=== PATIENT | male | born 1960 | race Caucasian/White ===

== ENCOUNTER 2017-01-29 11:29 | Inpatient (IN) | payer BC ==
[~2017-01-29] VITALS: Ht 170.2 cm; Wt 89.8 kg
--- NOTE | ~2017-01-29 | TEE ---
[facility] [place] [address] TRANSESOPHAGEAL ECHOCARDIOGRAM Name: DANIEL HARRIS Room #: 211-P ADM IN M.R.#: [id number] Admission: 01/29/17 Attend Phys: Naa Lazo Discharge: Date of : 56 Date of Service: 01/30/17 0915 Report #: [id number] THIS REPORT FOR: //name// APPROVED REPORT Study performed: 01/30/2017 07:56:13 EXAM: Comprehensive 2D, Doppler, and color-flow Echocardiogram Patient Location: [facility] Room #: 211 Status: routine Other Information Study Quality: Good Indications Atrial Fibrillation Cardioversion Procedure After obtaining informed consent, patient underwent transesophageal echo in the [facility]. Type of Sedation : Conscious Sedation Sedation was administered by Brooke Daniel RN. Sedation was achieved intravenously with: Versed (5) Fentanyl (100) Transesophageal probe was inserted and advanced into esophagus without difficulty by Bassam Valverde MD. The KULDEEP was performed without complications. Throughout the procedure, the blood pressure, pulse oximetry, cardiac rhythm, and rate were monitored. The patient tolerated the procedure without adverse effects. Recovery from conscious sedation was uneventful and vital signs were stable. Left Ventricle The left ventricle is normal size. There is normal LV segmental wall motion. Left ventricular systolic function is lower limits of normal LVEF is 50%. Right Ventricle The right ventricle is normal size. The right ventricular systolic function is normal. [facility] [address] [place] [address] TRANSESOPHAGEAL ECHOCARDIOGRAM Name: DANIEL HARRIS Marky Room #: 211-P ADM IN M.R.#: [id number] Admission: 01/29/17 Attend Phys: Naa Lazo Discharge: Date of : 56 Date of Service: 01/30/17 0915 Report #: [id number] Atria Left atrium is dilated. No thrombus is visualized in the left atrium or appendage. Injection of bubbles documented no interatrial shunt. Right atrium is dilated. Aortic Valve The aortic valve is normal in structure. No aortic regurgitation is present. There is no aortic valvular stenosis. Mitral Valve The mitral valve is normal in structure. Mild mitral regurgitation. Tricuspid Valve The tricuspid valve is normal in structure. Trace tricuspid regurgitation. Pulmonic Valve The pulmonary valve is normal in structure. Great Vessels The aortic root is normal in size. The ascending aorta is normal in size. Pericardium There is no pericardial effusion. <Conclusion> Left ventricular systolic function is lower limits of normal There is normal LV segmental wall motion. LVEF 50%. Right and left atria are dilated. No thrombus is visualized in the left atrium or appendage. Injection of bubbles documented no interatrial shunt. The aortic valve is normal in structure. No aortic regurgitation or stenosis The mitral valve is normal in structure. Mild mitral regurgitation. There is no pericardial effusion. <ELECTRONICALLY SIGNED> By: Bassam Valverde MD, FAC 01/30/17914 4 4 Bassam Valverde MD, FAC /INF
--- NOTE | ~2017-01-29 | EKG ---
[address] [address] ELECTROCARDIOGRAM REPORT Name: DANIEL HARRIS Room #: 211-P ADM IN M.R.#: [id number] Admission: 01/29/17 Attend Phys: Anish Durán MD Discharge: Date of : 56 Report #: [id number] THIS REPORT FOR: //name// [facility] ED Test Date: 2017-01-29 Test Time: 11:34:36 Pat Name: DANIEL HARRIS Department: Room: 211 Gender: M Doughnut Icer: LIOR : 1960 Requested By: Tessie Velázquez Order Number: [id number] MD: Bassam Valverde Measurements Intervals [place] Rate: 145 P: SC: QRS: 21 QRSD: 81 T: 34 QT: 295 QTc: 458 Interpretive Statements Atrial fibrillation Borderline repolarization abnormality Compared to ECG 07/20/2006 08:47:54 Sinus rhythm no longer present Electronically Signed On 01-30-2017 8:41:13 CDT by Bassam Valverde [email or web address] <ELECTRONICALLY SIGNED> By: Bassam Valverde MD, [facility] 01/30/17 0841 1134 113 Bassam Valverde MD, FACC /EPI
--- NOTE | ~2017-01-29 | EKG ---
[address] [address] ELECTROCARDIOGRAM REPORT Name: DANIEL HARRIS Room #: 211- ADM IN M.R.#: [id number] Admission: 01/29/17 Attend Phys: Anish Durán MD Discharge: Date of : 56 Report #: [id number] THIS REPORT FOR: //name// [facility] Test Date: 2017-01-30 Test Time: 08:44:39 Pat Name: DANIEL HARRIS Department: Room: 211 P Gender: M Data Coordinator: MARBELLA : 1960 Requested By: Bassam Valverde Order Number: [id number] MD: Bassam Valverde Measurements Intervals [place] Rate: 82 P: 57 AL: 193 QRS: 6 QRSD: 89 T: QT: 447 QTc: 522 Interpretive Statements Sinus rhythm Nonspecific T abnrm, anterolateral leads Prolonged QT interval Compared to ECG 01/29/2017 11:34:36 Prolonged QT interval now present Atrial fibrillation no longer present Electronically Signed On 01-30-2017 8:50:30 CDT by Bassam Valverde [email or web address] <ELECTRONICALLY SIGNED> By: Bassam Valverde MD, [facility] 01/30/17 0850 0844 0844 Bassam Valverde MD, [facility] /EPI
[2017-01-29 11:36] VITALS: BP 147/99
[2017-01-29] MEDS ORDERED: CELEXA20 MG PO (11:39)
[2017-01-29 11:59] LABS: HEMATOCRIT 45.2 % (42.0-52.0); HEMOGLOBIN 15.1 gm/dL (14.0-18.0); MCH 29.3 pg (26.0-34.0); MCHC 33.5 g/dL (28.0-37.0); MCV 87.5 fL (80.0-100.0); PLATELET COUNT 172 thou/uL (150-400); RBC 5.16 mil/uL (4.50-6.00); RDW 14.6 % (10.5-14.5); WBC 12.5 thou/uL (4.0-11.0)
[2017-01-29 12:03] LABS: MANUAL DIFF YES
[2017-01-29 12:08] LABS: ANION GAP 9 mmol/L (7-16); BUN 9 mg/dL (7-18); CALCIUM 9.2 mg/dL (8.5-10.1); CHLORIDE 104 mmol/L (98-107); CO2 26 mmol/L (21-32); GLUCOSE 151 mg/dL (74-106); POTASSIUM 3.6 mmol/L (3.5-5.1); SODIUM 139 mmol/L (136-145)
[2017-01-29 12:09] LABS: APTT 29.5 Seconds (24.5-32.8); INR 1.1
[2017-01-29 12:16] LABS: TROPONIN-I < 0.04 ng/mL (<0.04-0.07)
[2017-01-29 12:20] LABS: ABSOLUTE NEUTROPHILS 10.8 thou/uL (1.4-8.2); PLATELET ESTIMATE NORMAL; TOTAL CELL COUNT 100
[2017-01-29 14:20] VITALS: BP 130/89
[2017-01-29] MEDS ORDERED: MELATIN3 MG PO (15:16)
[2017-01-29 16:43] VITALS: BP 131/92
[2017-01-29 19:40] VITALS: BP 125/93
[2017-01-29 23:13] VITALS: BP 116/93
[2017-01-30 04:02] VITALS: BP 115/88
[2017-01-30 04:07] LABS: ABSOLUTE NEUTROPHILS 8.5 thou/uL (1.4-8.2); BASOPHILS 0.3 % (0.0-2.0); EOSINOPHILS 0.5 % (0.0-3.0); HEMATOCRIT 41.8 % (42.0-52.0); HEMOGLOBIN 13.9 gm/dL (14.0-18.0); LYMPHOCYTES 12.6 % (24.0-44.0); MCHC 33.3 g/dL (28.0-37.0); MCV 87.1 fL (80.0-100.0); MONOCYTES 9.9 % (1.0-8.0); PLATELET COUNT 166 thou/uL (150-400); POLYS 76.7 % (36.0-66.0); RDW 14.6 % (10.5-14.5); WBC 11.1 thou/uL (4.0-11.0)
[2017-01-30 04:08] LABS: MANUAL DIFF NO
[2017-01-30 04:21] LABS: ANION GAP 8 mmol/L (7-16); BUN 11 mg/dL (7-18); CALCIUM 8.5 mg/dL (8.5-10.1); CHLORIDE 105 mmol/L (98-107); CHOLESTEROL 125 mg/dL (<200); CO2 26 mmol/L (21-32); CREATININE 0.9 mg/dL (0.7-1.3); GLUCOSE 120 mg/dL (74-106); HDL CHOLESTEROL 37 mg/dL (>40); LDL CHOLESTEROL 75 mg/dL (<100); MAGNESIUM 1.8 mg/dL (1.8-2.4); POTASSIUM 3.9 mmol/L (3.5-5.1); SODIUM 139 mmol/L (136-145); TC:HDL 3.4 Ratio (Not establshd); TRIGLYCERIDE 65 mg/dL (<150); VLDL 13 mg/dL (<40)
[2017-01-30 04:22] LABS: SERUM ASSESSMENT Clear
[2017-01-30 07:35] VITALS: BP 128/89
[2017-01-30 11:48] VITALS: BP 128/93
[2017-01-30 17:14] VITALS: BP 132/91
[2017-01-30 20:03] VITALS: BP 127/92
[2017-01-30 23:05] VITALS: BP 127/92
[2017-01-31 03:39] VITALS: BP 133/99
[2017-01-31 07:15] VITALS: BP 128/92
[2017-01-31] MEDS ORDERED: MULTAQ 400 MG400 MG PO (10:31)
[2017-01-31] MEDS ORDERED: CARDIZEM CD120 MG PO (10:31)
[2017-01-31] MEDS ORDERED: AZITHROMYCIN 2250 MG PO (10:31)
[2017-01-31] MEDS ORDERED: ROBITUSSIN COU237 M2 PO (10:31)
[2017-01-31] MEDS ORDERED: ELIQUIS5 MG PO (10:31)
[2017-01-31 10:38] VITALS: BP 133/99
== END 2017-01-31 11:40 | disposition home or self-care (01) | DRG 310 ==
LOC: ER 11:29 → EROBS 12:37 → 2N 12:37
PROVIDERS: Emergency Medicine; Internal Medicine
PROC: 5A2204Z Restoration of Cardiac Rhythm, Single (ICD-10-PCS; principal; 2017-01-30)
DX: I48.91 Unspecified atrial fibrillation (principal); J40 Bronchitis, not specified as acute or chronic; F41.9 Anxiety disorder, unspecified; G47.33 Obstructive sleep apnea (adult) (pediatric); K21.9 Gastro-esophageal reflux disease without esophagitis; Z79.01 Long term (current) use of anticoagulants; Z79.899 Other long term (current) drug therapy; Z82.49 Family history of ischemic heart disease and other diseases of the circulatory system
CPT/HCPCS: 10081

== ENCOUNTER → 2017-03-02 | Outpatient (CLI) | payer BC ==
[~2017-03-02] MED LIST: AZITHROMYCIN 2250 MG PO; CARDIZEM CD120 MG PO; CELEXA20 MG PO; COREG6.25 MG PO; ELIQUIS5 MG PO; MELATIN3 MG PO; MULTAQ 400 MG400 MG PO; ROBITUSSIN COU237 M2 PO
== END ==
LOC: NUC 02-23 10:11
DX: I48.91 Unspecified atrial fibrillation (principal)

== ENCOUNTER → 2017-03-07 | Outpatient (CLI) | payer BC ==
[~2017-03-07] VITALS: Ht 170.2 cm; Wt 90.7 kg
--- NOTE | ~2017-03-07 | CATHLAB ---
[facility] [address] [place] [address] INVASIVE PROCEDURE REPORT Name: DANIEL HARRIS Room #: REG ROSAMARIA Wasserman#: [id number] Admission: 03/07/17 Attend Phys: Sam Bolden MD Discharge: Date of : 56 Date of Service: 03/07/17 [facility] Report #: [id number] THIS REPORT FOR: //name// APPROVED REPORT Patient Details Patient Status: Out-Patient Room #: The patient is a 56 year-old male Event Personnel Sam Bolden Central Office Equipment Engineer, Scooter Estrada RN, Josi Olmos Monitor, Polo Driscoll Monitor, Radha Hassan RN Lathe Sander Procedures Performed Left Heart Cath w/or w/o Coronaries [id number] [facility] Indication Atrial fibrillation, Dyspnea, Cardiomyopathy Procedure Narrative The Right Wrist^ was infiltrated with 1% Lidocaine subcutaneous anesthesia. A 6FR TRANSRADIAL GLIDESHEATH W/ NEEDLE #[id number] sheath was inserted into the Right Radial Artery^. Coronary angiography was performed using coronary diagnostic catheters. The right coronary system was accessed and visualized with a JR4 catheter. The left coronary system was accessed and visualized with a JL3.5 catheter. The left ventricle was accessed and visualized with a PIGTAIL catheter. Left ventricular/Aortic Valve gradient assessed via catheter pullback. Left ventriculogram was performed in 30 degree projection. Hemostasis was obtained with manual pressure following sheath removal without any complications. The patient tolerated the procedure well and there were no complications associated with the procedure. There was no hematoma. Intraoperative Conscious Sedation Sedation start time: 8:16 Case end Time: 8:52 Fentanyl 25 mcg Versed 1 mg Fluoro Time: 5.04 minutes Dose: 743 mGy Contrast Type and Amount: Omnipaque 105 ml Coronary Angiography [facility] [address] [place] [address] INVASIVE PROCEDURE REPORT Name: KELLYDANIEL SPRINGER Room #: REG [facility]#: [id number] Admission: 03/07/17 Attend Phys: Sam Bolden MD Discharge: Date of : 56 Date of Service: 03/07/17 1038 Report #: [id number] The patient's coronary anatomy is right dominant. Diagnostic Cath Left Main Large-caliber vessel, with no flow-limiting lesions. LAD Moderate size caliber vessel, with no flow-limiting lesions. There are minimal luminal irregularities in the mid segment. Circumflex Moderate size caliber vessel, with no flow-limiting lesions. Right Coronary Large-caliber vessel, dominant. There were no flow-limiting lesions. There are minimal luminal irregularities in the proximal segment. R PDA Moderate size caliber vessel, extending around to the apex, with no flow-limiting lesions. RPLV Moderate size caliber vessel, with no flow-limiting lesions. Left Ventriculography The left ventricle is mildly dilated in size with decreased contractility. The left ventricular ejection fraction is estimated to be 25-30%. Hemodynamics The aortic pressure is 116/86 mmHg with a mean of 92 mmHg. The left ventricular pressure is 110/13 mmHg with a mean of mmHg. The left ventricular end diastolic pressure is 15 mmHg. Conclusion 1. Severe, nonischemic cardiomyopathy. 2. Minimal luminal irregularities, as noted above. 3. Medical therapy is recommended. Recommendations Aggressive Medical Therapy <ELECTRONICALLY SIGNED> By: Sam Bolden MD 03/07/17 1038 1038 1038 Sam Bolden MD /INF
--- NOTE | ~2017-03-07 | EKG ---
[address] [address] ELECTROCARDIOGRAM REPORT Name: STEVENDANIEL SUZANNE [facility]: [facility] [id number] Admission: 03/07/17 Attend Phys: Sam Bolden MD Discharge: Date of : 56 Report #: [id number] THIS REPORT FOR: //name// [facility] [place] [facility] Test Date: 2017-03-07 Test Time: 07:08:56 Pat Name: DANIEL HARRIS Department: Room: Gender: M Commercial Lines Assistant: STEWART : 1960 Requested By: Sam Bolden Order Number: [id number] MD: Bill Leslie Measurements Intervals [place] Rate: 71 P: NM: QRS: 7 QRSD: 91 T: 87 QT: 377 QTc: 410 Interpretive Statements Atrial fibrillation Borderline abnrm T, anterolateral leads Compared to ECG 01/30/2017 08:44:39 Sinus rhythm no longer present Prolonged QT interval no longer present Electronically Signed On 03-12-2017 21:38:15 CDT by Bill Leslie [email or web address] <ELECTRONICALLY SIGNED> By: Bill Leslie MD 03/12/17 2138 7 Bill Leslie MD /EDD
[2017-03-07 07:00] VITALS: BP 111/78
[2017-03-07 07:36] LABS: HEMATOCRIT 45.5 % (42.0-52.0); HEMOGLOBIN 15.4 gm/dL (14.0-18.0); MCHC 33.8 g/dL (28.0-37.0); MCV 85.8 fL (80.0-100.0); RBC 5.31 mil/uL (4.50-6.00); RDW 14.7 % (10.5-14.5); WBC 6.8 thou/uL (4.0-11.0)
[2017-03-07 07:45] LABS: CREATININE 1.1 mg/dL (0.7-1.3); POTASSIUM 4.2 mmol/L (3.5-5.1)
== END | disposition home or self-care (01) ==
LOC: CATH 06:33
PROVIDERS: Internal Medicine Cardiovascular Disease
DX: I25.10 Atherosclerotic heart disease of native coronary artery without angina pectoris (principal); I48.91 Unspecified atrial fibrillation; I42.9 Cardiomyopathy, unspecified

== ENCOUNTER → 2017-03-08 | Outpatient (CLI) | payer BC ==
--- NOTE | ~2017-03-08 | 2DMMODE ---
[facility] [place] [address] 2 D/M-MODE ECHOCARDIOGRAM Name: DANIEL HARRIS Room #: REG [facility]#: [id number] Admission: 03/08/17 Attend Phys: Bill Leslie Discharge: Date of : 56 Date of Service: 03/08/17 1600 Report #: [id number] THIS REPORT FOR: //name// APPROVED REPORT Study performed: 03/08/2017 15:25:35 EXAM: Limited 2D, Doppler, and color-flow Echocardiogram Patient Location: Out-Patient Status: routine BSA: 2.00 HR: 93 bpm BP: 128/89 mmHg Rhythm: Atrial Fibrillation Other Information Study Quality: Adequate Indications Limited echo for LV function. Nonischemic cardiomyopathy, Afib. 2D Dimensions RVDd: 33.54 mm LVEF(%): 33.35 (>50%) IVSd: 10.24 (7-11mm) LVDd: 49.28 mm PWd: 10.96 (7-11mm) LVDs: 41.46 (25-40mm) Shane's LVEF: 33.35 % Volumes Left Atrial Volume (Systole) Single Plane 4CH: 69.84 mL Single Plane 2CH: 86.58 mL LA ESV Index: 42.00 mL/m2 Tricuspid Valve TR Peak Talib.: 2.50 m/s RAP Estimate: 5.00 mmHg TR Peak Gr.: 25.01 mmHg PA Pressure: 30.00 mmHg Left Ventricle The left ventricle is normal size. There is normal left ventricular wall thickness. Left ventricular systolic function is severely decreased. LVEF is 30%. Right Ventricle [facility] [address] [place] [address] 2 D/M-MODE ECHOCARDIOGRAM Name: KELLYGIANDANIEL SUZANNE Room #: REG CL Lux#: [id number] Admission: 03/08/17 Attend Phys: Bill Leslie Discharge: Date of : 56 Date of Service: 03/08/17 1600 Report #: [id number] The right ventricle is normal size. Right ventricle is hypokinetic. Atria Left atrium is dilated. The right atrium size is normal. Aortic Valve The aortic valve is normal in structure. Trace aortic regurgitation. Mitral Valve The mitral valve is normal in structure. Trace mitral regurgitation. Tricuspid Valve The tricuspid valve is normal in structure. There is mild tricuspid regurgitation. The right atrial pressure is estimated at 5 mmHg. There is borderline mild pulmonary hypertension with an estimated PAP of 30mmHg. Great Vessels IVC is normal in size and collapses >50% with inspiration. Pericardium There is no pericardial effusion. <Conclusion> The left ventricle is normal size. Left ventricular systolic function is severely decreased. The right ventricle is normal size. Left atrium is dilated. Trace aortic regurgitation. Trace mitral regurgitation. There is mild tricuspid regurgitation. The right atrial pressure is estimated at 5 mmHg. There is borderline mild pulmonary hypertension with an estimated PAP of 30mmHg. <ELECTRONICALLY SIGNED> By: Sam Bolden MD 03/08/171599 99 99 Sam Bolden MD /INF
== END ==
LOC: CV 15:15
DX: I42.9 Cardiomyopathy, unspecified (principal); I48.91 Unspecified atrial fibrillation

== ENCOUNTER → 2017-04-10 | Outpatient (CLI) | payer BC ==
--- NOTE | ~2017-04-10 | 2DMMODE ---
[facility] [place] [address] 2 D/M-MODE ECHOCARDIOGRAM Name: DANIEL HARRIS Room #: REG [facility] [id number] Admission: 04/10/17 Attend Phys: Bill Leslie Discharge: Date of : 56 Date of Service: 04/10/17 1550 Report #: [id number] THIS REPORT FOR: //name// APPROVED REPORT Study performed: 04/10/2017 13:58:58 EXAM: Comprehensive 2D, Doppler, and color-flow Echocardiogram Patient Location: Out-Patient Status: routine BSA: 2.02 HR: 92 bpm BP: 119/87 mmHg Other Information Study Quality: Good Indications Cardiomyopathy 2D Dimensions RVDd: 33.80 mm LVEF(%): 40.78 (>50%) IVSd: 16.09 (7-11mm) LVOT Diam: 21.26 (18-24mm) LVDd: 49.95 mm PWd: 16.12 (7-11mm) Ascending Ao: 38.56 (22-36mm) LVDs: 39.97 (25-40mm) Aortic Root: 34.82 mm IVC: 2.50 mm Shane's LVEF: 40.78 % Volumes Left Atrial Volume (Systole) Single Plane 4CH: 70.54 mL Single Plane 2CH: 84.76 mL LA ESV Index: 42.00 mL/m2 Aortic Valve AoV Peak Talib.: 1.50 m/s AO Peak Gr.: 9.00 mmHg LVOT Max P.40 mmHg LVOT Max V: 0.77 m/s LINCOLN Vmax: 1.83 cm2 Mitral Valve IVRT: 92.27 ms Pulmonary Valve [facility] [employer] [address] [place] [address] 2 D/M-MODE ECHOCARDIOGRAM Name: STEVENDANIEL PALACIOS Room #: REG [facility] [id number] Admission: 04/10/17 Attend Phys: Bill Leslie Discharge: Date of : 56 Date of Service: 04/10/17 1550 Report #: [id number] PV Peak Talib.: 1.01 m/s PV Peak Gr.: 4.12 mmHg Tricuspid Valve TR Peak Talib.: 2.72 m/s RAP Estimate: 5.00 mmHg TR Peak Gr.: 29.59 mmHg PA Pressure: 35.00 mmHg Left Ventricle The left ventricle is normal size. Left ventricular systolic function is moderately decreased. LVEF is 35%. This study is not technically sufficient to allow evaluation of the LV diastolic function due to atrial fibrillation. Right Ventricle The right ventricle is normal size. Atria Left atrium is dilated. Right atrium is dilated. Aortic Valve The aortic valve is normal in structure. Trace aortic regurgitation. There is no aortic valvular stenosis. Mitral Valve The mitral valve is normal in structure. Trace mitral regurgitation. No evidence of mitral valve stenosis. Tricuspid Valve The tricuspid valve is normal in structure. There is trace to mild tricuspid regurgitation. The right atrial pressure is estimated at 5 mmHg. There is mild pulmonary hypertension with an estimated PAP of 35 mmHg. Pulmonic Valve The pulmonary valve is normal in structure. There is no pulmonic valvular regurgitation. Great Vessels The aortic root is normal in size. The ascending aorta is normal in size. IVC is normal in size and collapses >50% with inspiration. Pericardium There is no pericardial effusion. <Conclusion> [facility] [address] [place] [address] 2 D/M-MODE ECHOCARDIOGRAM Name: KELLYGIANDANIEL SUZANNE Room #: REG [facility]#: [id number] Admission: 04/10/17 Attend Phys: Bill Leslie Discharge: Date of : 56 Date of Service: 04/10/171549 Report #: [id number] The left ventricle is normal size. Left ventricular systolic function is moderately decreased. The right ventricle is normal size. Left atrium is dilated. Trace aortic regurgitation. Trace mitral regurgitation. There is trace to mild tricuspid regurgitation. The right atrial pressure is estimated at 5 mmHg. There is mild pulmonary hypertension with an estimated PAP of 35 mmHg. <ELECTRONICALLY SIGNED> By: Sam Bolden MD 04/10/171549 49 1550 Sam Bolden MD /INF
== END ==
LOC: CV 07:22
DX: I42.9 Cardiomyopathy, unspecified (principal)

== ENCOUNTER → 2017-04-21 | Outpatient (CLI) | payer BC ==
[~2017-04-21] VITALS: Ht 170.2 cm; Wt 90.7 kg
[~2017-04-21] MED LIST changes: +ALTACE10 MG PO; +ASPIR 8181 M1 PO; +CARVEDILOL12.5 MG PO; +MELATONIN1 MG PO; +PACERONE 200 M200 M1 PO; +VITAMIN D3400 UNIT PO
--- NOTE | ~2017-04-21 | EKG ---
[address] [address] ELECTROCARDIOGRAM REPORT Name: STEVENDANIEL SUZANNE Room #: REG [facility]#: [id number] Admission: 04/21/17 Attend Phys: Bill Leslie MD Discharge: Date of : 56 Report #: [id number] THIS REPORT FOR: //name// [facility] [place] Test Date: 2017-04-21 Test Time: 12:08:01 Pat Name: DANIEL HARRIS Department: Room: Gender: M Assembler Seat: GR : 1960 Requested By: Bill Leslie Order Number: [id number] MD: Bassam Valverde Measurements Intervals [place] Rate: 56 P: 46 NV: 211 QRS: 1 QRSD: 91 T: 32 QT: 493 QTc: 476 Interpretive Statements Sinus rhythm Borderline T abnormalities, anterior leads Borderline prolonged QT interval Compared to ECG 03/07/2017 07:08:56 sinus rhythm is replaced atrial fibrillation Nonspecific change in the ST and T-wave segments Electronically Signed On 04-24-2017 8:06:27 CDT by Bassam Valverde [email or web address] <ELECTRONICALLY SIGNED> By: Bassam Valverde MD, [facility] 04/24/17 0806 1208 1208 Bassam Valverde MD, [facility] /EPI
--- NOTE | ~2017-04-21 | P ---
[facility] [place] [address] PROCEDURE REPORT Name: STEVENDANIEL PALACIOS Room #: REG Ilir Wasserman#: [id number] Admission: 04/21/17 Attend Phys: Bill Leslie MD Discharge: Date of : 56 Report #: [id number] THIS REPORT FOR: //name// CC: Bill Valverde PROCEDURE: Cardioversion. PREOPERATIVE DIAGNOSIS: Atrial fibrillation. POSTOPERATIVE DIAGNOSIS: Atrial fibrillation. The patient is a 56-year-old recently diagnosed with a nonischemic cardiomyopathy and atrial fibrillation. He has been on optimal medical therapy for his cardiomyopathy, also has a LifeVest and is here for cardioversion after being loaded with oral amiodarone. DESCRIPTION OF PROCEDURE: The patient underwent informed consent. The patient was sedated by the anesthesiology service. Once sedated, the patient underwent a successful 200 joule synchronized cardioversion with jainism of sinus rhythm. There were no complications. CONCLUSIONS: Successful DC cardioversion with jainism of sinus rhythm. <ELECTRONICALLY SIGNED> By: Bill Leslie MD 04/24/17 1601 1505 1656 Bill Leslie MD /nt
[2017-04-21 09:59] LABS: HEMATOCRIT 45.8 % (42.0-52.0); HEMOGLOBIN 15.7 gm/dL (14.0-18.0); MCH 29.6 pg (26.0-34.0); MCHC 34.3 g/dL (28.0-37.0); MCV 86.3 fL (80.0-100.0); RBC 5.31 mil/uL (4.50-6.00); RDW 14.8 % (10.5-14.5)
[2017-04-21 10:07] VITALS: BP 121/83
[2017-04-21 10:08] LABS: CALCIUM 8.9 mg/dL (8.5-10.1); CREATININE 1.1 mg/dL (0.7-1.3); POTASSIUM 4.1 mmol/L (3.5-5.1)
[2017-04-21 10:14] LABS: ALBUMIN 3.9 g/dL (3.4-5.0); APTT 29.4 Seconds (24.5-32.8); INR 1.1; PROTIME 10.8 Seconds (9.3-11.4); TOTAL BILIRUBIN 1.4 mg/dL (<0.1-1.0); TOTAL PROTEIN 7.1 g/dL (6.4-8.2)
== END | disposition home or self-care (01) ==
LOC: CATH 09:12
PROVIDERS: Internal Medicine Cardiovascular Disease
DX: I48.91 Unspecified atrial fibrillation (principal); I42.8 Other cardiomyopathies; F41.8 Other specified anxiety disorders; K21.9 Gastro-esophageal reflux disease without esophagitis; Z98.890 Other specified postprocedural states; Z87.891 Personal history of nicotine dependence; Z79.82 Long term (current) use of aspirin; Z79.899 Other long term (current) drug therapy

== ENCOUNTER → 2017-05-05 | Outpatient (CLI) | payer BC ==
[~2017-05-05] VITALS: Ht 170.2 cm; Wt 90.7 kg
[~2017-05-05] MED LIST changes: +AMBIEN 5 MG TABL5 M1 PO; +ZPAK PO
--- NOTE | ~2017-05-05 | P ---
[facility] [place] [address] PROCEDURE REPORT Name: STEVENDANIEL PALACIOS Room #: REG [facility] Thang.#: [id number] Admission: 05/05/17 Attend Phys: Bill Leslie MD Discharge: Date of : 56 Report #: [id number] THIS REPORT FOR: //name// CC: Bill Leslie [facility] DATE OF SERVICE: 05/05/2017 PROCEDURE PERFORMED: Cardioversion. PREOPERATIVE DIAGNOSIS: Typical atrial flutter. POSTOPERATIVE DIAGNOSIS: Typical atrial flutter. HISTORY OF PRESENT ILLNESS: The patient is a 56-year-old with recent diagnosis of nonischemic cardiomyopathy and atrial fibrillation, status post recent cardioversion, but was found to be in aflutter. He is here for repeat cardioversion now that he has been for a total of one month. PROCEDURE: The patient underwent informed consent and was sedated by the anesthesiology service. He then underwent a successful DC cardioversion with 100 joules with druze of sinus rhythm. CONCLUSIONS: Successful cardioversion from a typical atrial flutter to sinus rhythm. By: 1347 1620 Bill Leslie MD /nt
--- NOTE | ~2017-05-05 | EKG ---
[address] [address] ELECTROCARDIOGRAM REPORT Name: BRITTNEERockyDANIEL [facility] [id number] Admission: 05/05/17 Attend Phys: Bill Leslie MD Discharge: Date of : 56 Report #: [id number] THIS REPORT FOR: //name// [facility] Test Date: 2017-05-05 Test Time: 12:56:29 Pat Name: DANIEL HARRIS Department: Room: Gender: Production Analyst: Marilynn BERNAL : 1960 Requested By: Bill Leslie Order Number: [id number] MD: Bill Leslie Measurements Intervals [place] Rate: 78 P: 55 SC: 201 QRS: 2 QRSD: 95 T: 12 QT: 470 QTc: 536 Interpretive Statements Sinus rhythm Prolonged QT interval Compared to ECG 04/21/2017 12:08:01 T-wave abnormality no longer present Electronically Signed On 05-05-2017 21:05:07 CDT by Bill Leslie [email or web address] <ELECTRONICALLY SIGNED> By: Bill Leslie MD 05/05/17 7650 1256 1256 Bill Leslie MD /EPI
[2017-05-05 11:52] VITALS: BP 130/86
== END | disposition home or self-care (01) ==
LOC: CATH 05-04 06:27
DX: I48.3 Typical atrial flutter (principal); Z98.890 Other specified postprocedural states; I48.91 Unspecified atrial fibrillation; K21.9 Gastro-esophageal reflux disease without esophagitis; I42.8 Other cardiomyopathies; Z87.891 Personal history of nicotine dependence
CPT/HCPCS: 62110; 62900

== ENCOUNTER 2017-05-15 16:10 | Inpatient (IN) | payer BC ==
[~2017-05-15] VITALS: Ht 170.2 cm; Wt 105.1 kg
--- NOTE | ~2017-05-15 | H ---
[facility] [place] [address] HISTORY AND PHYSICAL Name: STEVENDANIEL PALACIOS Room #: 208-P ADM IN M.R.#: [id number] Admission: 05/15/17 Attend Phys: Bill Leslie MD Discharge: Date of : 56 Report #: [id number] THIS REPORT FOR: //name// CC: Bill Leslie [facility] DATE OF SERVICE: 05/15/2017 HISTORY OF PRESENT ILLNESS: The patient is a patient of mine who is a 56-year-old with a nonischemic cardiomyopathy. He was first diagnosed with this in the setting of atrial fibrillation with rapid ventricular response. He also has a history of prior pericarditis. To work up his nonischemic cardiomyopathy, he underwent a nuclear stress test on 03/02/2017 which demonstrated an EF of 32% and a fixed apical defect. Based on these findings, he underwent cardiac catheterization on 03/07/2017 demonstrating an EF of 25-30% with luminal irregularities. To try and maintain sinus rhythm, I started the patient on oral amiodarone and the patient underwent a cardioversion in March. He followed up a few weeks later after he noticed that he was having increased shortness of breath and palpitations and was noted to be in typical atrial flutter. As such, I had the patient undergo a repeat cardioversion on 05/05/2017 and this was successful. He reports that approximately 3 days later, he was experiencing worsening shortness of breath and fatigue. The patient reports that he almost went to the Emergency Room yesterday because of ongoing exertional dyspnea as well as PND and orthopnea. He has also been experiencing some chest discomfort, some lightheadedness and near syncopal episodes. He is very stressed out about his cardiomyopathy and the fact that his brother had a cardiomyopathy requiring heart transplantation. His EKG today demonstrates that he is back in typical atrial flutter. PAST MEDICAL HISTORY: As noted above. SOCIAL HISTORY: He does not smoke. 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 FAMILY HISTORY: Includes a brother who had heart transplantation. ALLERGIES: He has no known drug allergies. CURRENT MEDICATIONS: Include amiodarone 200 mg a day, aspirin, carvedilol 12.5 b.i.d., Eliquis, ramipril 2.5, Ambien and vitamin D. REVIEW OF SYSTEMS: GENERAL: No fevers or chills. HEENT: No blurred vision. CARDIOVASCULAR: As above. PULMONARY: No productive cough. [address] [address] HISTORY AND PHYSICAL Name: DANIEL HARRIS Room #: 208-P [facility] IN M.R.#: [id number] Admission: 05/15/17 Attend Phys: Bill Leslie MD Discharge: Date of : 56 Report #: [id number] GASTROINTESTINAL: No nausea or vomiting. GENITOURINARY: No dysuria. MUSCULOSKELETAL: He does have profound weakness, but no myalgias or arthralgias. ENDOCRINE: No heat or cold intolerance. NEUROLOGIC: He reports that he is having short-term memory problems. PHYSICAL EXAMINATION: VITAL SIGNS: Blood pressure today 160/110, heart rate 103, weight 90.7. GENERAL: He is in mild distress and appears to be anxious. HEENT: Oropharynx is clear. NECK: Supple with no thyromegaly. HEART: Tachycardic and slightly irregular. He does have positive JVD. LUNGS: Clear to auscultation bilaterally. ABDOMEN: Soft, nontender, nondistended with no hepatosplenomegaly. EXTREMITIES: There is no clubbing, cyanosis, edema. NEUROLOGICAL: Cranial nerves 2-12 are intact. DIAGNOSTIC DATA: His EKG today shows typical atrial flutter. SUMMARY: In summary, the patient is a 56-year-old with a nonischemic cardiomyopathy who is back in with recurrent typical atrial flutter with rapid ventricular response. I think this may have caused a component of bznld-ks-cfdhasy systolic heart failure. I recommend that he be admitted to the CCU and that we optimize his rate control. I recommend that we start the patient on some IV diuretics. I have discussed in order to maintain sinus rhythm for his atrial flutter that we should consider performing an ablation. At this time, I do not think he is suitable to undergo an AFib ablation given his mfoan-oz-zjxmrny heart failure symptoms. We will see how he progresses over the next few days and see if we either cardiovert him again or proceed with the flutter ablation. Thank you for allowing me to participate in his care. By: 1513 1600 Bill Leslie MD /nt
--- NOTE | ~2017-05-15 | EKG ---
[address] [address] ELECTROCARDIOGRAM REPORT Name: STEVENDANIEL Room #: 208-P ADM IN M.R.#: [id number] Admission: 05/15/17 Attend Phys: Bill Leslie MD Discharge: Date of : 56 Report #: [id number] THIS REPORT FOR: //name// [facility] Test Date: 2017-05-16 Test Time: 09:00:28 Pat Name: DANIEL HARRIS Department: Room: 208 P Gender: M Hospital Personnel Director: ANTONIETA : 1960 Requested By: Bill Leslie Order Number: [id number] MD: Bill Leslie Measurements Intervals [place] Rate: 99 P: FL: QRS: -8 QRSD: 89 T: 240 QT: 367 QTc: 471 Interpretive Statements Atrial fibrillation Electronically Signed On 05-16-2017 13:16:39 CDT by Bill Leslie [email or web address] <ELECTRONICALLY SIGNED> By: Bill Leslie MD 05/16/17 1316 0900 0900 Bill Leslie MD /EDD
--- NOTE | ~2017-05-15 | P ---
[facility] [place] [address] PROCEDURE REPORT Name: DANIEL HARRIS Room #: 208-P ADM IN M.R.#: [id number] Admission: 05/15/17 Attend Phys: Bill Leslie MD Discharge: Date of : 56 Report #: [id number] THIS REPORT FOR: //name// CC: Bill Leslie [facility] PROCEDURE PERFORMED: Cardioversion. PREOPERATIVE DIAGNOSIS: Atrial flutter. POSTOPERATIVE DIAGNOSIS: Atrial flutter. PROCEDURE: The patient underwent informed consent and received IV amiodarone overnight. He was sedated by the anesthesiology service. Once sedated, he underwent a successful 200 joule synchronized cardioversion with yazidism of sinus rhythm. CONCLUSIONS: Successful cardioversion for atrial flutter with yazidism of sinus rhythm. By: 1055 1215 Bill Leslie MD /nt
--- NOTE | ~2017-05-15 | 2DMMODE ---
[facility] [address] [employer] [place] [address] 2 D/M-MODE ECHOCARDIOGRAM Name: DANIEL HARRIS Room #: 208-P ADM IN .R.#: [id number] Admission: 05/15/17 Attend Phys: Bill Leslie Discharge: Date of : 56 Date of Service: 05/16/17 1525 Report #: [id number] THIS REPORT FOR: //name// APPROVED REPORT Study performed: 05/16/2017 14:07:16 EXAM: Comprehensive 2D, Doppler, and color-flow Echocardiogram Patient Location: Bedside Room #: 208 Status: routine BSA: 2.02 HR: 77 bpm BP: 122/85 mmHg Other Information Study Quality: Good Indications Atrial Fibrillation Cardiomyopathy 2D Dimensions RVDd: 30.00 mm LVEF(%): 59.61 (>50%) IVSd: 10.86 (7-11mm) LVOT Diam: 21.95 (18-24mm) LVDd: 51.02 mm PWd: 10.61 (7-11mm) Ascending Ao: 32.74 (22-36mm) LVDs: 34.77 (25-40mm) Aortic Root: 34.30 mm IVC: 17.00 mm Shane's LVEF: 59.61 % Volumes Left Atrial Volume (Systole) Single Plane 4CH: 52.07 mL Single Plane 2CH: 50.76 mL LA ESV Index: 30.00 mL/m2 Aortic Valve AoV Peak Talib.: 1.21 m/s AO Peak Gr.: 5.92 mmHg LVOT Max P.95 mmHg LVOT Max V: 0.69 m/s LINCOLN Vmax: 2.15 cm2 Pulmonary Valve PV Peak Talib.: 0.80 m/s PV Peak Gr.: 2.60 mmHg [facility] [place] [address] 2 D/M-MODE ECHOCARDIOGRAM Name: DANIEL HARRIS [place] Room #: 208-P ADM IN M.R.#: [id number] Admission: 05/15/17 Attend Phys: Bill Leslie Discharge: Date of : 56 Date of Service: 05/16/17 1525 Report #: [id number] Tricuspid Valve TR Peak Talib.: 2.26 m/s TR Peak Gr.: 20.39 mmHg PA Pressure: 25.00 mmHg Left Ventricle The left ventricle is normal size. There is global hypokinesis of the left ventricle. There is normal left ventricular wall thickness. Left ventricular systolic function is mild to moderately decreased. LVEF is 40-45%. This study is not technically sufficient to allow evaluation of the LV diastolic function due to atrial flutter. Right Ventricle The right ventricle is normal size. The right ventricular systolic function is normal. Atria Left atrium is at the upper limits of normal. Right atrium is dilated. Aortic Valve The aortic valve is normal in structure. The Aortic valve is sclerotic. No aortic regurgitation is present. There is no aortic valvular stenosis. Mitral Valve The mitral valve is normal in structure. Trace mitral regurgitation. No evidence of mitral valve stenosis. Tricuspid Valve The tricuspid valve is normal in structure. Trace tricuspid regurgitation. Estimated PAP 25 mmHg. Pulmonic Valve The pulmonary valve is normal in structure. There is no pulmonic valvular regurgitation. Great Vessels The aortic root is normal in size. IVC is normal in size and collapses >50% with inspiration. Pericardium There is no pericardial effusion. <Conclusion> The left ventricle is normal size. [facility] [address] [place] [address] 2 D/M-MODE ECHOCARDIOGRAM Name: STEVENDANIEL PALACIOS Room #: 208-P [facility] IN .R.#: [id number] Admission: 05/15/17 Attend Phys: Bill Leslie Discharge: Date of : 56 Date of Service: 05/16/17 1525 Report #: [id number] Left ventricular systolic function is mild to moderately decreased. LVEF is 40-45%. This study is not technically sufficient to allow evaluation of the LV diastolic function due to atrial flutter. The right ventricle is normal size. Left atrium is at the upper limits of normal. Right atrium is dilated. There is no aortic valvular stenosis. Trace mitral regurgitation. There is no pericardial effusion. <ELECTRONICALLY SIGNED> By: Uday Beltran MD, FACC 05/16/17 1525 1525 1525 Uday Beltran MD, FACC /INF
--- NOTE | ~2017-05-15 | EKG ---
[address] [address] ELECTROCARDIOGRAM REPORT Name: BRITTNEERockyDANIEL Room #: 208-P ADM IN M.R.#: [id number] Admission: 05/15/17 Attend Phys: Bill Leslie MD Discharge: Date of : 56 Report #: [id number] THIS REPORT FOR: //name// [facility] Test Date: 2017-05-17 Test Time: 13:24:18 Pat Name: DANIEL HARRIS Department: Room: 208 P Gender: M Crop Consultant: Marilynn BERNAL : 1960 Requested By: Bill Leslie Order Number: [id number] MD: Measurements Intervals [place] Rate: 73 P: 61 TN: 190 QRS: 6 QRSD: 89 T: 97 QT: 414 QTc: 457 Interpretive Statements Sinus rhythm Nonspecific T abnormalities, lateral leads Compared to ECG 05/16/2017 09:00:28 T-wave abnormality now present Atrial fibrillation no longer present [email or web address] By: 1324 1324 Epiphany EpiphanyMD /EPI
[2017-05-15 19:49] VITALS: BP 141/95
[2017-05-15 19:58] LABS: HEMATOCRIT 50.6 % (42.0-52.0); HEMOGLOBIN 17.1 gm/dL (14.0-18.0); MCHC 33.9 g/dL (28.0-37.0); MCV 85.6 fL (80.0-100.0); RBC 5.91 mil/uL (4.50-6.00); RDW 14.5 % (10.5-14.5); WBC 12.7 thou/uL (4.0-11.0)
[2017-05-15 20:12] LABS: ALBUMIN 4.2 g/dL (3.4-5.0); CALCIUM 9.3 mg/dL (8.5-10.1); CREATININE 1.2 mg/dL (0.7-1.3); POTASSIUM 3.3 mmol/L (3.5-5.1); TOTAL BILIRUBIN 1.6 mg/dL (<0.1-1.0); TOTAL PROTEIN 8.4 g/dL (6.4-8.2)
[2017-05-15 20:13] LABS: PROTIME 10.4 Seconds (9.3-11.4)
[2017-05-16 03:52] LABS: HEMATOCRIT 47.6 % (42.0-52.0); HEMOGLOBIN 16.2 gm/dL (14.0-18.0); MCH 28.9 pg (26.0-34.0); MCHC 33.9 g/dL (28.0-37.0); MCV 85.1 fL (80.0-100.0); RBC 5.6 mil/uL (4.50-6.00); RDW 14.7 % (10.5-14.5); WBC 9.2 thou/uL (4.0-11.0)
[2017-05-16 04:03] LABS: CALCIUM 9.4 mg/dL (8.5-10.1); CREATININE 1.1 mg/dL (0.7-1.3); POTASSIUM 3.6 mmol/L (3.5-5.1)
[2017-05-16 08:13] VITALS: BP 128/96
[2017-05-16 11:47] VITALS: BP 122/85
[2017-05-16 16:20] VITALS: BP 118/79
[2017-05-16 20:06] VITALS: BP 104/75
[2017-05-16 23:44] VITALS: BP 115/84
[2017-05-17 03:17] LABS: ABSOLUTE NEUTROPHILS 7.3 thou/uL (1.4-8.2); BASOPHILS 0.8 % (0.0-2.0); EOSINOPHILS 2.3 % (0.0-3.0); HEMOGLOBIN 16.8 gm/dL (14.0-18.0); LYMPHOCYTES 18.6 % (24.0-44.0); MCH 29.3 pg (26.0-34.0); MCHC 33.6 g/dL (28.0-37.0); MCV 87.1 fL (80.0-100.0); PLATELET COUNT 217 thou/uL (150-400); POLYS 70.3 % (36.0-66.0); RBC 5.74 mil/uL (4.50-6.00); RDW 14.6 % (10.5-14.5); WBC 10.3 thou/uL (4.0-11.0)
[2017-05-17 03:21] LABS: MANUAL DIFF NO
[2017-05-17 03:23] LABS: CALCIUM 9.8 mg/dL (8.5-10.1); CREATININE 1.4 mg/dL (0.7-1.3); POTASSIUM 4.5 mmol/L (3.5-5.1)
[2017-05-17 04:44] VITALS: BP 116/81
[2017-05-17 07:45] VITALS: BP 102/76
[2017-05-17 11:54] VITALS: BP 118/78
[2017-05-17] MEDS ORDERED: LISINOPRIL5 MG PO (13:18)
[2017-05-17 13:28] VITALS: BP 118/78
== END 2017-05-17 14:15 | disposition home or self-care (01) | DRG 310 ==
LOC: 2N 16:10
PROVIDERS: Internal Medicine Cardiovascular Disease; Nurse Practitioner Gerontology
PROC: 5A2204Z Restoration of Cardiac Rhythm, Single (ICD-10-PCS; principal; 2017-05-17)
DX: I48.92 Unspecified atrial flutter (principal); I42.8 Other cardiomyopathies; I48.91 Unspecified atrial fibrillation; I50.9 Heart failure, unspecified; F41.9 Anxiety disorder, unspecified; Z28.21 Immunization not carried out because of patient refusal
CPT/HCPCS: 10081; 62110

== ENCOUNTER 2017-05-22 06:37 | Observation (INO) | payer BC ==
[~2017-05-22] VITALS: Ht 170.2 cm; Wt 84.7 kg
--- NOTE | ~2017-05-22 | EKG ---
[address] [address] ELECTROCARDIOGRAM REPORT Name: DANIEL HARRIS SUZANNE Room #: 214-[facility] M.R.#: [id number] Admission: 05/22/17 Attend Phys: Bill Leslie MD Discharge: Date of : 56 Report #: [id number] THIS REPORT FOR: //name// [facility] Test Date: 2017-05-22 Test Time: 13:19:05 Pat Name: DANIEL HARRIS Department: Room: 214 Gender: M Strategic Intelligence Officer: Marilynn BERNAL : 1960 Requested By: Elia Flood Order Number: [id number] MD: Bill Leslie Measurements Intervals [place] Rate: 76 P: 50 AK: 208 QRS: 24 QRSD: 91 T: 33 QT: 437 QTc: 492 Interpretive Statements Sinus rhythm Electronically Signed On 05-23-2017 7:09:55 CDT by Bill Leslie [email or web address] <ELECTRONICALLY SIGNED> By: Bill Leslie MD 05/23/17 0709 1319 1319 Bill Leslie MD /EDD
--- NOTE | ~2017-05-22 | P ---
[facility] [place] [address] PROCEDURE REPORT Name: DANIEL HARRIS Room #: 214-P [facility] M.Cortes#: [id number] Admission: 05/22/17 Attend Phys: Bill Leslie MD Discharge: Date of : 56 Report #: [id number] THIS REPORT FOR: //name// CC: Bill Leslie [facility] HISTORY OF PRESENT ILLNESS: The patient is a 56-year-old with a resolved nonischemic cardiomyopathy, EF of 45% with history of atrial fibrillation, status post cardioversion times 3. After his cardioversions, he remained in sinus for a few days and then degenerates into atrial flutter. He is here for both an AFib and aflutter ablation. PROCEDURES PERFORMED: 1. AFib ablation, CPT code 49204. 2. 3D mapping, CPT code 66546. 3. Intracardiac echo, CPT code 07402. 4. Secondary pathway ablation, CPT code 46805. ANESTHESIA: The patient underwent general anesthesia with no anesthesia related complications. PROCEDURE: The patient underwent informed consent where we discussed the details of the procedure including the risks, which include, but not limited to bleeding, vascular damage, cardiac perforation, stroke and GA. He understood these risks and is willing to proceed. As such, he was brought to the EP laboratory in a fasting and sedated state and prepped and draped in a sterile fashion. I obtained access to the right femoral vein times 3, placing a 9-Indonesian, 8-Indonesian, and 7-Indonesian locking sheath using the modified Seldinger technique. Under the fluoroscopy, I placed a decapolar catheter into the coronary sinus and an ice catheter into the right atrium. Of note, maintenance of the decapolar catheter in the coronary sinus was somewhat challenging. With intracardiac ultrasound, I verified that there was 2 left and 2 right pulmonary veins, there was interatrial septum. Next, the patient was systemically heparinized and a transseptal was performed using an SL1 sheath and [place] needle. Once in the left atrium, I exchanged the SL1 sheath for the cryo sheath and placed the cryoballoon into the left atrium. Next, we isolated the left superior pulmonary vein. The left superior vein isolated within 50 seconds of the first freeze and we performed a total of 2 freezes, the left inferior pulmonary vein also isolated within about 30-40 seconds of the first freeze and we performed 2 freezes in this vein as well. Next, we performed 2 freezes in the right superior and the right inferior pulmonary veins while phrenic nerve pacing was performed from the decapolar catheter placed in the high right atrium. There was never any phrenic nerve compromise, the veins were interrogated and found to be isolated after both freezes. All veins were reinterrogated and found to be isolated. Next, the cryo sheath and balloon were pulled to the right atrium and we prepared for the atrial flutter ablation. [address] [address] PROCEDURE REPORT Name: STEVENDANIEL Room #: 214-P [facility] Liang Wasserman#: [id number] Admission: 05/22/17 Attend Phys: Bill Leslie MD Discharge: Date of : 56 Report #: [id number] Next, I exchanged my cryo sheath for a 14-Indonesian short sheath and placed a ramp sheath into the right atrium and placed an 8 mm Biosense Rueda into the right atrium. I removed the ice catheter and placed a Halo catheter into the right atrium. Prior to the ablation, there was evidence of conduction across the isthmus Next, I created a detailed 3D geometry of the right atrium with specific emphasis of the triscuspid annulus and then performed ablation at 6 o'clock along the triscuspid annulus at 70 teran and degrees. Of note, he had a very long isthmus. After my ablation catheter fell into the inferior vena cava, we checked and there was evidence of bidirectional block, transisthmus conduction times of 145-150 milliseconds. Differential pacing was performed along the Halo catheter and there was evidence of lateral to medial block as well. As such, the procedure was concluded, all catheters and sheaths were pulled and hemostasis was obtained. The patient awoke neurologically and hemodynamically intact, no complications and no significant bleeding. Prior to the ablation, the patient was in sinus rhythm with a sinus cycle length of 1170 milliseconds, AK interval 205 milliseconds, QRS duration 85 milliseconds, QT interval 460 milliseconds, and HV interval 37 milliseconds. Post-ablation, the patient was in sinus rhythm with sinus cycle length of 1050 milliseconds, AK interval 160 milliseconds, QRS duration 85 milliseconds, and QT interval 440 milliseconds. CONCLUSIONS: 1. Successful isolation of the pulmonary veins using cryoablation. 2. Successful ablation of typical atrial flutter with evidence of bidirectional block. By: 1123 1434 Bill Leslie MD /nt
[~2017-05-22 06:37] MED LIST changes: +LISINOPRIL5 MG PO
[2017-05-22 07:07] VITALS: BP 131/89
[2017-05-22 07:45] LABS: ABSOLUTE NEUTROPHILS 3.9 thou/uL (1.4-8.2); BASOPHILS 0.9 % (0.0-2.0); EOSINOPHILS 2.6 % (0.0-3.0); HEMOGLOBIN 15.1 gm/dL (14.0-18.0); MCH 29.4 pg (26.0-34.0); MCHC 33.7 g/dL (28.0-37.0); MCV 87.3 fL (80.0-100.0); MONOCYTES 8.8 % (1.0-8.0); PLATELET COUNT 232 thou/uL (150-400); POLYS 65.7 % (36.0-66.0); RBC 5.15 mil/uL (4.50-6.00); RDW 14.3 % (10.5-14.5)
[2017-05-22 07:48] LABS: MANUAL DIFF NO
[2017-05-22 07:54] LABS: CALCIUM 9.3 mg/dL (8.5-10.1); CREATININE 1.1 mg/dL (0.7-1.3); POTASSIUM 3.8 mmol/L (3.5-5.1)
[2017-05-22 07:59] LABS: ALBUMIN 3.8 g/dL (3.4-5.0); TOTAL BILIRUBIN 1.3 mg/dL (<0.1-1.0); TOTAL PROTEIN 7.3 g/dL (6.4-8.2)
[2017-05-22 08:32] LABS: PROTIME 9.9 Seconds (9.3-11.4)
[2017-05-22 13:50] VITALS: BP 131/89
[2017-05-22 19:37] VITALS: BP 134/92
[2017-05-22 23:36] VITALS: BP 107/69
[2017-05-23 03:25] VITALS: BP 120/83
[2017-05-23 07:20] VITALS: BP 123/87
[2017-05-23 10:26] VITALS: BP 123/87
== END 2017-05-23 11:30 | disposition home or self-care (01) ==
LOC: CATH 06:37 → 2N 13:50 → CATH 13:54 → ENTRNSPT 05-23 11:13 → EDTRNSPTSTS 05-23 11:14 → 2N 05-23 11:30
PROVIDERS: Internal Medicine Cardiovascular Disease
DX: I48.91 Unspecified atrial fibrillation (principal); I48.92 Unspecified atrial flutter; F41.9 Anxiety disorder, unspecified; I42.9 Cardiomyopathy, unspecified; K21.9 Gastro-esophageal reflux disease without esophagitis; Z87.891 Personal history of nicotine dependence
CPT/HCPCS: 62110; 62900; 65020; 65040; 70005

== ENCOUNTER → 2017-08-22 | Outpatient (CLI) | payer BC ==
--- NOTE | ~2017-08-22 | 2DMMODE ---
[facility] [address] [place] [address] 2 D/M-MODE ECHOCARDIOGRAM Name: DANIEL HARRIS Room #: REG Lux#: [id number] Admission: 08/22/17 Attend Phys: Bill Leslie Discharge: Date of : 56 Date of Service: 08/22/17 1437 Report #: [id number] THIS REPORT FOR: //name// APPROVED REPORT Study performed: 08/22/2017 12:12:48 EXAM: Comprehensive 2D, Doppler, and color-flow Echocardiogram Patient Location: Out-Patient Room #: Echo lab Status: routine BSA: 1.96 HR: 69 bpm BP: 132/86 mmHg Other Information Study Quality: Good Indications Atrial Fibrillation Cardiomyopathy Hypertension/HDD 2D Dimensions RVDd: 35.81 mm LVEF(%): 49.29 (>50%) IVSd: 11.39 (7-11mm) LVOT Diam: 21.11 (18-24mm) LVDd: 45.39 mm PWd: 10.66 (7-11mm) Ascending Ao: 34.56 (22-36mm) LVDs: 34.12 (25-40mm) Aortic Root: 34.76 mm IVC: 18.00 mm Shane's LVEF: 49.29 % Volumes Left Atrial Volume (Systole) Single Plane 4CH: 35.32 mL Single Plane 2CH: 57.49 mL LA ESV Index: 24.00 mL/m2 Mitral Valve E/A Ratio: 0.9 MV Decel. Time: 326.15 ms MV E Max Talib.: 0.63 m/s MV A Talib.: 0.74 m/s MV PHT: 94.58 ms IVRT: 156.86 ms [facility] [address] [place] [address] 2 D/M-MODE ECHOCARDIOGRAM Name: DANIEL HARRIS Room #: [facility] BlancaCortes#: [id number] Admission: 08/22/17 Attend Phys: Bill Leslie Discharge: Date of : 56 Date of Service: 08/22/17 1437 Report #: [id number] Pulmonary Valve PV Peak Talib.: 0.92 m/s PV Peak Gr.: 3.36 mmHg Pulmonary Vein P Vein S: 0.47 m/s P Vein A: 0.26 m/s P Vein D: 0.33 m/s P Vein A Dur.: 106.1 msec P Vein S/D Ratio: 1.42 Tricuspid Valve TR Peak Talib.: 2.73 m/s TR Peak Gr.: 29.78 mmHg PA Pressure: 35.00 mmHg Left Ventricle The left ventricle is normal size. There is normal left ventricular wall thickness. The left ventricular systolic function is normal. The left ventricular ejection fraction is within the normal range. LVEF is 50-55%. Grade I - abnormal relaxation pattern. Right Ventricle The right ventricle is normal size. The right ventricular systolic function is normal. Atria The left atrium size is normal. The right atrium size is normal. Aortic Valve The aortic valve is normal in structure. No aortic regurgitation is present. There is no aortic valvular stenosis. Mitral Valve The mitral valve is normal in structure. Trace mitral regurgitation. No evidence of mitral valve stenosis. Tricuspid Valve The tricuspid valve is normal in structure. There is trace tricuspid regurgitation. There is mild pulmonary hypertension. Pulmonic Valve The pulmonary valve is normal in structure. There is no pulmonic valvular regurgitation. Great Vessels The aortic root is normal in size. IVC is normal in size and collapses >50% with inspiration. [facility] [address] [place] [address] 2 D/M-MODE ECHOCARDIOGRAM Name: DANIEL HARRIS Room #: REG ROSAMARIA Wasserman#: [id number] Admission: 08/22/17 [facility]end [facility]: [facility] Discharge: Date of : 56 Date of Service: 08/22/17 1437 Report #: [id number] Pericardium There is no pericardial effusion. <Conclusion> The left ventricle is normal size. LVEF is 50-55%. The aortic valve is normal in structure. The mitral valve is normal in structure. Trace mitral regurgitation. The tricuspid valve is normal in structure. There is trace tricuspid regurgitation. There is mild pulmonary hypertension. The pulmonary valve is normal in structure. There is no pericardial effusion. <ELECTRONICALLY SIGNED> By: Sammy Novoa MD 08/22/17 1437 1437 143 Sammy Novoa MD /INF
== END ==
LOC: CV 11:42
DX: I48.91 Unspecified atrial fibrillation (principal); I42.8 Other cardiomyopathies; I10 Essential (primary) hypertension; I27.20 Pulmonary hypertension, unspecified